=== PATIENT | male | born 1980 | race Caucasian/White ===

== ENCOUNTER → 2016-11-29 | Outpatient (CLI) | payer OTHER ==
--- NOTE | 2016-11-29 20:04 | REP ---
UNILATERAL LEFT RIBS, PA CHEST: HISTORY: Left rib pain. The lungs are clear. The heart is normal in size. The pulmonary vasculature is normal in appearance. The bony structure is intact. There is an old healed fracture of the left 8th rib. IMPRESSION: No acute disease. Signed by Misbah Tian MD 11/30/2016 08:26 A
[2016-11-29 22:02] LABS: BASO # 0.1 10^3/uL (0.0-0.2); BASO % 0.7 % (0.0-1.0); EOS # 0.2 10^3/uL (0.0-0.50); EOS % 2.9 % (0.0-3.0); IMMATURE GRANULOCYTE % 0.1 % (0-0); LYMPH # 2.3 10^3/uL (1.5-4.5); LYMPH % 32.7 % (24.0-44.0); MEAN CORPUSCULAR HEMOGLOBIN 31.6 pg (27.0-33.0); MEAN CORPUSCULAR HGB CONC 34.1 g/dl (32.0-36.5); MEAN CORPUSCULAR VOLUME 92.7 fl (80.0-96.0); MONO # 0.7 10^3/uL (0.0-0.8); MONO % 10.3 % (0.0-5.0); NEUTROPHILS # 3.7 10^3/uL (1.8-7.7); NEUTROPHILS % 53.3 % (36.0-66.0); PLATELET COUNT, AUTOMATED 343 10^3/uL (150-450); RED CELL DISTRIBUTION WIDTH 12.5 % (11.5-14.5)
[2016-11-29 22:24] LABS: ALBUMIN 4.4 GM/DL (3.2-5.2); ALBUMIN/GLOBULIN RATIO 1.52 (1.00-1.93); ALKALINE PHOSPHATASE 64 U/L (45-117); ALT/SGPT 44 U/L (12-78); ANION GAP 7 MEQ/L (8-16); AST/SGOT 23 U/L (15-37); BILIRUBIN,TOTAL 1.1 MG/DL (0.2-1.0); BLOOD UREA NITROGEN 16 MG/DL (7-18); CALCIUM LEVEL 9.6 MG/DL (8.5-10.1); CARBON DIOXIDE LEVEL 29 MEQ/L (21-32); CHLORIDE LEVEL 104 MEQ/L (98-107); CREATININE FOR GFR 1.05 MG/DL (0.70-1.30); GLOMERULAR FILTRATION RATE > 60.0 (>60); GLUCOSE, FASTING 79 MG/DL (70-105); POTASSIUM SERUM 4.4 MEQ/L (3.5-5.1); SODIUM LEVEL 140 MEQ/L (136-145); TOTAL PROTEIN 7.3 GM/DL (6.4-8.2)
== END ==
LOC: M RAD 18:37
PROVIDERS: ATTEND Physician Assistant
DX: R07.81 Pleurodynia (principal); R53.83 Other fatigue; R63.4 Abnormal weight loss

== ENCOUNTER → 2017-02-27 | Outpatient (CLI) | payer OTHER | LOC: M WUC 13:34 | DX: S00.83XA Contusion of other part of head, initial encounter (principal); W18.30XA Fall on same level, unspecified, initial encounter; Y92.009 Unspecified place in unspecified non-institutional (private) residence as the place of occurrence of the external cause ==

== ENCOUNTER 2018-01-23 11:01 | Emergency (ER) | payer OTHER ==
[2018-01-23 14:13] LABS: BASO % 0.5 % (0.0-1.0); EOS # 0.1 10^3/uL (0.0-0.50); EOS % 1.9 % (0.0-3.0); HEMATOCRIT 46.8 % (42.0-52.0); HEMOGLOBIN 16.4 g/dl (13.5-17.5); IMMATURE GRANULOCYTE % 0.3 % (0-3.0); LYMPH % 31.4 % (24.0-44.0); MEAN CORPUSCULAR HEMOGLOBIN 31.5 pg (27.0-33.0); MEAN CORPUSCULAR VOLUME 89.8 fl (80.0-96.0); MONO # 0.5 10^3/uL (0.0-0.8); MONO % 8.4 % (0.0-5.0); NEUTROPHILS # 3.7 10^3/uL (1.8-7.7); NEUTROPHILS % 57.5 % (36.0-66.0); PLATELET COUNT, AUTOMATED 324 10^3/uL (150-450); RED BLOOD COUNT 5.21 10^6/uL (4.30-6.10); RED CELL DISTRIBUTION WIDTH 11.8 % (11.5-14.5); WHITE BLOOD COUNT 6.4 10^3/uL (4.0-10.0)
[2018-01-23 14:35] LABS: ANION GAP 6 MEQ/L (8-16); BLOOD UREA NITROGEN 20 MG/DL (7-18); CARBON DIOXIDE LEVEL 30 MEQ/L (21-32); CHLORIDE LEVEL 103 MEQ/L (98-107); CREATININE FOR GFR 0.85 MG/DL (0.70-1.30); GLOMERULAR FILTRATION RATE > 60.0 (>60); GLUCOSE, FASTING 92 MG/DL (70-100); POTASSIUM SERUM 4.4 MEQ/L (3.5-5.1); SODIUM LEVEL 139 MEQ/L (136-145)
== END 2018-01-23 15:16 | disposition home or self-care (01) ==
LOC: M ED 11:01
DX: J06.9 Acute upper respiratory infection, unspecified (principal); R19.7 Diarrhea, unspecified; F41.9 Anxiety disorder, unspecified; Z79.899 Other long term (current) drug therapy
CPT/HCPCS: 71046

== ENCOUNTER → 2022-03-08 | Outpatient (CLI) | payer OTHER ==
[~2022-03-08] MED LIST: BENZ200C70 PO; BUPR150T12; CLON0.5T2; COLA100C5 PO; MIRA3350 PO; MUCI600T37 PO; PROBCAP14 PO; VENL37TA
== END ==
LOC: M WUC 09:41
PROVIDERS: ATTEND Physician Assistant
DX: Z09 Encounter for follow-up examination after completed treatment for conditions other than malignant neoplasm (principal); Z80.42 Family history of malignant neoplasm of prostate
CPT/HCPCS: 36415; G0103

== ENCOUNTER → 2022-03-10 | Outpatient (CLI) | payer OTHER | LOC: M WUC 13:08 | PROVIDERS: ATTEND Physician Assistant | DX: S23.41XA Sprain of ribs, initial encounter (principal) ==

== ENCOUNTER → 2022-03-23 | Outpatient (REF) | payer OTHER | LOC: M SMT 14:05 | PROVIDERS: ATTEND Urology | DX: Z30.2 Encounter for sterilization (principal) ==

== ENCOUNTER → 2022-06-17 | Outpatient (REF) | payer OTHER ==
[2022-06-17 14:34] LABS: SEMEN APPEARANCE OPAQUE (OPAQUE); SEMEN VISCOSITY LIQUID (LIQUID); SEMEN VOLUME 2.1 ml (2.0-5.0)
[2022-06-17 14:35] LABS: WBC CONCENTRATION <=1 M/ml (<=1 M/ml)
== END ==
LOC: M SMT 12:23
PROVIDERS: ATTEND Urology
DX: Z30.2 Encounter for sterilization (principal)

== ENCOUNTER → 2022-09-16 | Outpatient (REF) | payer OTHER ==
[2022-09-16 11:15] LABS: MB/CK RELATIVE INDEX 1.26 (< OR =4)
== END ==
LOC: M LAB REF 10:10
PROVIDERS: ATTEND Nurse Practitioner Family
DX: R07.9 Chest pain, unspecified (principal)

== ENCOUNTER → 2023-06-20 | Outpatient (REF) | payer OTHER ==
[2023-06-20 12:22] LABS: C REACTIVE PROTEIN QUANTITATIV < 0.40 MG/DL (<1.0)
[2023-06-20 12:30] LABS: URIC ACID 6.2 MG/DL (3.7-9.2)
== END ==
LOC: M LAB REF 11:52
PROVIDERS: ATTEND Nurse Practitioner Family
DX: M25.50 Pain in unspecified joint (principal)

== ENCOUNTER 2023-12-19 16:05 | Emergency (ER) | payer OTHER ==
[~2023-12-19] VITALS: Ht 180.3 cm; Wt 116.0 kg
[2023-12-19 16:08] VITALS: TEMP 96.8
[2023-12-19] MEDS ORDERED: CYCL-707 (16:15)
[2023-12-19] MEDS ORDERED: PREG50CA3 (16:15)
[2023-12-19] MEDS ORDERED: METH4PACK (16:15)
[2023-12-19] MEDS ORDERED: LEVOTAB10 (16:16)
[2023-12-19] MEDS: KETOROLAC 60MG 2ML VIAL IM ONE (19:05)
[2023-12-19 22:08] VITALS: BP 137/87; O2SAT 99
== END 2023-12-19 22:24 | disposition home or self-care (01) ==
LOC: M ED 16:05
DX: M54.41 Lumbago with sciatica, right side (principal); M51.371 Other intervertebral disc degeneration, lumbosacral region with lower extremity pain only; Z79.899 Other long term (current) drug therapy
CPT/HCPCS: 72131; 93971; 96372; 99283; J1885

== ENCOUNTER → 2024-10-22 | Outpatient (REF) | payer OTHER ==
[~2024-10-22] MED LIST changes: +CYCL-707; +LEVOTAB10; +METH4PACK; +PREG50CA3
[2024-10-26 22:53] LABS: TESTOSTERONE FREE (DIRECT) 82.3 pg/mL (35.0-155.0); TESTOSTERONE TOTAL FOR T&D 440.0 ng/dL (250-1100)
== END ==
LOC: M LAB REF 12:22
PROVIDERS: ATTEND Nurse Practitioner Family
DX: R53.83 Other fatigue (principal)